=== PATIENT | male | born 1950 | race Caucasian/White ===

== ENCOUNTER 2018-10-02 12:44 | Observation (INO) | payer OTHER, SELFPAY ==
[2018-10-02] VITALS (7 sets, daily range): BP systolic 123–149; BP diastolic 61–87; PULSE 52–67; RESP 12–18; TEMP 36.1–36.9; O2SAT 94–98; BMI 25.5
--- NOTE | 2018-10-02 12:57 | DI.RAD.S_ITS ---
PROCEDURE: XR FINGER LT MIN 2V INDICATIONS: injury pain TECHNIQUE: AP hand, 2 views of the left finger(s) acquired. COMPARISON: None. FINDINGS: Bones: Index finger distal phalanx fracture with volar angulation of the dominant distal fragment. First CMC and triscaphe joint degeneration Soft tissues: No suspicious soft tissue calcifications. Severe distal index finger soft tissue swelling IMPRESSION: Index finger distal phalanx fracture. Associated soft tissue swelling. Dictated by: Sai Roblero M.D. on 10/02/2018 at 13:29 Approved by: Sai Roblero M.D. on 10/02/2018 at 13:30
[2018-10-02] MEDS: HYDROMORPHONE 1 MG INJ IV (13:21)
[2018-10-02] MEDS: TET,DIPH,PERTUSS(ACELL),VAC/PF 0.5 ML SYRINGE IM (13:23)
--- NOTE | 2018-10-02 13:24 | ED_ITS ---
HPI - Wound/Laceration <ARUN Dominique Last Filed: 10/02/18 21:05> General Chief Complaint: Wound/Laceration Stated Complaint: cut off tip of pointer finger on rt hand Time Seen by Provider: 10/02/18 13:11 Source: patient Mode of arrival: ambulatory Limitations: no limitations History of Present Illness HPI narrative: This 68-year-old male injured his hand at work , catching it between rolling belts and yair on a large HVAC unit. he thinks it took off the tip of his finger. He complains of stinging pain in the left pointer finger , denies any other pain or injury. He thinks it has been more than 5 years since his last tetanus vaccine. Related Data Home Medications Medication Instructions Recorded Confirmed No Known Home Medications 10/02/18 10/02/18 Previous Rx's Medication Instructions Recorded oxycodone 5 mg PO Q4-6H PRN #40 tab 10/02/18 Allergies Allergy/AdvReac Type Severity Reaction Status Date / Time No Known Drug Allergies Allergy Verified 10/02/18 12:56 Review of Systems <Kiara Nolasco PA-C - Last Filed: 10/02/18 21:05> Review of Systems ROS Unobtainable: All systems reviewed & are unremarkable except as noted in HPI and below PFSH <Kiara Nolasco PA-C - Last Filed: 10/02/18 21:05> Comment: former smoker, Occ ETOH Exam <ARUN Dominique Last Filed: 10/02/18 21:05> Narrative Exam Narrative: GENERAL APPEARANCE: Patient sitting comfortably, in no distress. LUNGS: Clear to auscultation bilaterally. HEART: Rate and rhythm regular without murmur, normal S1 and S2, no S3 or S4. MUSCULOSKELETAL: Able to bend left pointer finger at the PIP and MCP DERMATOLOGIC: there is a large avulsion of the left pointer finger though the pad appears intact. Moderate bleeding. NEUROVASCULAR: Left pointer finger tip sensation is grossly intact. Tip is warm and pink Initial Vital Signs Initial Vital Signs: Vital Signs Temperature 97.5 F L 10/02/18 12:57 Pulse Rate 67 10/02/18 12:57 Respiratory Rate 16 10/02/18 12:57 Blood Pressure 123/76 10/02/18 12:57 Pulse Oximetry 95 10/02/18 12:57 <Una Hernandez DO - Last Filed: 10/03/18 08:25> Initial Vital Signs Initial Vital Signs: Vital Signs Temperature 97.5 F L 10/02/18 12:57 Pulse Rate 67 10/02/18 12:57 Respiratory Rate 16 10/02/18 12:57 Blood Pressure 123/76 10/02/18 12:57 Pulse Oximetry 95 10/02/18 12:57 Course <Kiara Nolasco PA-C - Last Filed: 10/02/18 21:05> Additional Information: Dr. Cantu reservation agent for orthopedics has been here to evaluate patient who is feeling more comfortable after pain medication. he thinks that he will be able to reattached the finger and plans to take patient directly to OR in the next couple of hours. Orders Ordered: Discontinued Medications Bupivacaine HCl (Sensorcaine 0.5% (Pf)) 30 ml INJ INTRA-OP ONE Stop: 10/02/18 16:47 Last Admin: 10/02/18 17:04 Dose: 10 ml Cefazolin Sodium (Ancef Vial) 1 gm IV NOW ONE Stop: 10/02/18 13:32 Last Admin: 10/02/18 14:19 Dose: Diphtheria/Tetanus/Acell Pertussis (Adacel) 0.5 ml IM .ONCE ONE Stop: 10/02/18 13:21 Last Admin: 10/02/18 13:23 Dose: 0.5 ml Fentanyl (Sublimaze) 50 mcg IV Q5MIN PRN PRN Reason: Pain, Moderate (4-6) Hydromorphone HCl (Dilaudid) 1 mg IV NOW ONE Stop: 10/02/18 13:21 Last Admin: 10/02/18 13:21 Dose: 1 mg Cefazolin Sodium/Dextrose (Ancef) 1 gm in 50 mls @ 100 mls/hr IV NOW ONE Stop: 10/02/18 14:14 Last Infusion: 10/02/18 15:12 Dose: 0 mls/hr Admin: 10/02/18 13:47 Dose: 100 mls/hr Lactated Ringer's (Lactated Ringers) 1,000 mls @ 42 mls/hr IV CONT CLRAY Cefazolin Sodium/Dextrose (Ancef) 2 gm in 100 mls @ 200 mls/hr IV NOW ONE Stop: 10/02/18 17:16 Last Infusion: 10/02/18 16:51 Dose: 0 mls/hr Admin: 10/02/18 16:37 Dose: 200 mls/hr Lidocaine HCl (Xylocaine 1%) 10 ml INJ NOW ONE Stop: 10/02/18 16:48 Last Admin: 10/02/18 16:47 Dose: 10 ml Ondansetron HCl (Zofran) 4 mg IV NOW PRN PRN Reason: Nausea And Vomiting Vital Signs - 8 hr 10/02/18 15:30 10/02/18 15:50 10/02/18 16:04 Temperature 96.9 F L Pulse Rate 52 L 67 56 L Respiratory Rate 18 16 16 Blood Pressure 142/87 H 145/61 H Blood Pressure [Right Arm] 142/87 H Pulse Oximetry 96 97 94 10/02/18 17:05 10/02/18 17:15 10/02/18 17:25 Temperature 98.4 F 97.7 F 97.7 F Pulse Rate 56 L 56 L 56 L Respiratory Rate 12 16 16 Blood Pressure 149/64 H 149/87 H 149/80 H Blood Pressure [Right Arm] Pulse Oximetry 98 96 96 <Una Hernandez, - Last Filed: 10/03/18 08:25> Orders Ordered: Discontinued Medications Bupivacaine HCl (Sensorcaine 0.5% (Pf)) 30 ml INJ INTRA-OP ONE Stop: 10/02/18 16:47 Last Admin: 10/02/18 17:04 Dose: 10 ml Cefazolin Sodium (Ancef Vial) 1 gm IV NOW ONE Stop: 10/02/18 13:32 Last Admin: 10/02/18 14:19 Dose: Diphtheria/Tetanus/Acell Pertussis (Adacel) 0.5 ml IM .ONCE ONE Stop: 10/02/18 13:21 Last Admin: 10/02/18 13:23 Dose: 0.5 ml Fentanyl (Sublimaze) 50 mcg IV Q5MIN PRN PRN Reason: Pain, Moderate (4-6) Hydromorphone HCl (Dilaudid) 1 mg IV NOW ONE Stop: 10/02/18 13:21 Last Admin: 10/02/18 13:21 Dose: 1 mg Cefazolin Sodium/Dextrose (Ancef) 1 gm in 50 mls @ 100 mls/hr IV NOW ONE Stop: 10/02/18 14:14 Last Infusion: 10/02/18 15:12 Dose: 0 mls/hr Admin: 10/02/18 13:47 Dose: 100 mls/hr Lactated Ringer's (Lactated Ringers) 1,000 mls @ 42 mls/hr IV CONT CLARY Cefazolin Sodium/Dextrose (Ancef) 2 gm in 100 mls @ 200 mls/hr IV NOW ONE Stop: 10/02/18 17:16 Last Infusion: 10/02/18 16:51 Dose: 0 mls/hr Admin: 10/02/18 16:37 Dose: 200 mls/hr Lidocaine HCl (Xylocaine 1%) 10 ml INJ NOW ONE Stop: 10/02/18 16:48 Last Admin: 10/02/18 16:47 Dose: 10 ml Ondansetron HCl (Zofran) 4 mg IV NOW PRN PRN Reason: Nausea And Vomiting Vital Signs - 8 hr 10/02/18 15:30 10/02/18 15:50 10/02/18 16:04 Temperature 96.9 F L Pulse Rate 52 L 67 56 L Respiratory Rate 18 16 16 Blood Pressure 142/87 H 145/61 H Blood Pressure [Right Arm] 142/87 H Pulse Oximetry 96 97 94 10/02/18 17:05 10/02/18 17:15 10/02/18 17:25 Temperature 98.4 F 97.7 F 97.7 F Pulse Rate 56 L 56 L 56 L Respiratory Rate 12 16 16 Blood Pressure 149/64 H 149/87 H 149/80 H Blood Pressure [Right Arm] Pulse Oximetry 98 96 96 Discharge Plan Discharge Plan Discharge Problem: Avulsion of fingertip, Finger fracture, left Discharge Med Rec/Prescriptions Prescriptions: New oxycodone 5 mg tablet 5 mg PO Q4-6H PRN (Reason: pain) Qty: 40 RF: 0 No Action No Known Home Medications RF: 0 Follow up/Referrals: Philip Cantu MD [Physician] - 1 Week (Call clinic for appointment time on October 07 2018) Discharge Orders: Discharge (Order); Ordered 10/02/18 Ordered By: Philip Cantu Provider Discharge Instructions Diet: Regular Activity: Protect left index finger. Keep dressing in place until clinic follow -up next week. Keep hand elevated. Skin/Wound/Dressing Care Report to your healthcare provider any signs of infection, such as:: chills, fever, increased pain, unusual drainage and unusual redness Dressing: Keep dressing in place until clinic follow-up next week. Discharge Data Attending Provider: Philip Cantu Admit Date/Time: 10/02/18 13:46 Discharge Interventions Interventions: ED Discharge Assessment Last Done: 10/02/18 15:50 Discharges patient from system. Discharge Date/Time: 10/02/18 20:09 <Una Hernandez DO - Last Filed: 10/03/18 08:25> Cosign ED Attending Mracio Attestation: I was immediately available in the department for consultation. Documentation has been reviewed. I agree with assessment and plan.
[2018-10-02] MEDS: CEFAZOLIN 1 GM/50 ML FROZ.PIGGY IV (13:47)
--- NOTE | 2018-10-02 15:09 | PM.PREOP ---
Pre-operative Note Interval Note History & Physical reviewed/Exam performed by Physician: Yes Changes to H&P: No
--- NOTE | 2018-10-02 16:05 | PM.HP.1 ---
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 The finger was fractured and there was no open wound. He presented to the emergency room. At the emergency room he was able to feel the tip of his finger and the finger did appear viable. He denies any previous problems with his finger. He is right handed. He does play the [employer]. Patient History Medical History Healthy adult male (Chronic) Surgical History No pertinent past surgical history (Chronic) Family History Other Family history non-contributory Family & Social History Family History Other Family history non-contributory Meds Home Medications Medication Instructions Recorded Confirmed Type No Known Home Medications 10/02/18 10/02/18 History Allergies Allergy/AdvReac Type Severity Reaction Status Date / Time No Known Drug Allergies Allergy Verified 10/02/18 12:56 Review of Systems Review of Systems All systems reviewed & are unremarkable except as noted in HPI and below Exam Vital Signs (past 8 hours): - 10/02/18 12:57 10/02/18 15:30 10/02/18 15:50 Temperature 97.5 F L Pulse Rate 67 52 L 67 Respiratory Rate 16 18 16 Blood Pressure 123/76 142/87 H Blood Pressure [Right Arm] 142/87 H Pulse Oximetry 95 96 97 Oxygen Delivery Method Room Air Const General: cooperative, healthy appearing and comfortable Orientation: alert, awake and oriented x3 Resp Auscultation: clear to auscultation bilaterally Cardio Rate: regular rate Rhythm: regular rhythm Skin Other: The patient has a wound on the dorsal aspect of the left index finger just proximal to the nail bed. There is gross deformity of the finger. Neuro Other: The patient has intact sensation to light touch over the pulp of the index finger. The patient's strength and sensation is otherwise fully intact throughout the upper extremity. Extrem Other: There is gross deformity of the left the index finger with a 1/2 cm transverse open wound that goes across the entire dorsum of the finger. The finger tip is pink and appears adequately perfused. The remainder of the upper extremity is unremarkable. Assessment & Plan Plan: Assessment/Plan Narrative: Open fracture of the left index finger proximal phalanx. The patient has an open extra-articular fracture of the distal phalanx with significant dorsal wound. The patient does have intact sensation over the tip of the finger. The finger is pink and appears viable. X-rays show a somewhat comminuted transverse fracture just distal to the the IP joint. No obvious involvement of the joint. We discussed the nature of this condition and further treatment options. I have recommended irrigation debridement and pinning of the finger. I think the finger tip is likely to survive but does understand there is some chance that the end of the finger may and need to be revised. Consent was obtained. Operative site confirmed and marked. Time Spent With Patient Time with patient: less than 15 minutes
--- NOTE | 2018-10-02 16:15 | P.OP_ITS ---
Operative Date/Time/Diagnoses Date of procedure: 10/02/18 Time of procedure: 17:05 Pre-op diagnosis: Open displaced fracture of the left index finger distal phalanx Post-op diagnosis: same Procedure & Clinicians Procedure: Irrigation and debridement and wound closure of left index finger distal phalanx fracture Same procedure as scheduled: Yes Indications: The patient presents today for irrigation debridement and percutaneous fixation of open fracture of the left index finger distal phalanx. The nature of the procedure including the risks and benefits, alternatives, postoperative course and expected outcome were discussed and all questions answered. Consent was obtained. Operative site confirmed and marked. Surgeon: Philip Cantu Click Yes if Unassisted: Yes Anesthesia Type: Local Operative Notes Findings: The wound was clean without any obvious contamination it was thoroughly irrigated. The dorsal wound was then closed and the avulsed nail plate sutured in place. The finger was then examined under fluoroscopy. The fracture comminuted but reduced well was exceedingly stable even with flexion extension of the finger. I did not feel there would be any benefit to percutaneous pinning especially given the comminuted nature of the fracture. The wound blood well in the finger remained pink throughout the procedure with no evidence of compromise blood flow. Closure Type: primary Specimen(s): none sent Estimated Blood Loss (mL): 5 Procedure in detail: The patient was taken the operative suite and given a digital nerve block with 10 cc of 1% lidocaine. The finger was then prepped draped usual sterile fashion. There is a dorsal wound just distal to the DI P joint. The nail plate was avulsed approximately with about 4 mm of the nail plate on the proximal portion of the wound. The wound was thoroughly irrigated with 1 L of normal saline. The fracture was then reduced by closing the skin and suturing the nail plate to the proximal nail fold. The fracture was then evaluated under AP and lateral fluoroscopy. The fracture reduced nearly anatomically and was very stable to manipulation and flexion extension as tested under fluoroscopy. I did not think there would be any benefit to percutaneous pinning which would need across the IP joint. The wound was dressed with Xeroform and sterile gauze. A light finger dressing and aluminum splint was placed. Care was taken not to put any pressure on the finger as to affect the blood supply. Another digital block with 10 cc of 0.5% plain Marcaine was then given for postoperative pain control. The patient tolerated procedure well and was returned recovery room in good condition. Complications: none Condition: stable Disposition: same day surgery Plan for aftercare: The patient will keep the dressing in place over the next 5- 7 days. Follow up in clinic next week.
--- NOTE | 2018-10-02 16:24 | SUR.OPER ---
Supine on padded OR bed, head on pillow, arms secured on padded arm boards at <90 degrees abduction, legs uncrossed, safety belt at thigh, tape over blanket over lower legs.
[2018-10-02] MEDS: CEFAZOLIN 2 GM/100 ML FROZ.PIGGY IV (16:37)
[2018-10-02] MEDS: LIDOCAINE 1% 20 ML INJ 10 ML INJ (16:47)
[2018-10-02] MEDS: BUPIVACAINE 0.5% (PF) VIAL 30 ML INJ (17:04)
--- NOTE | 2018-10-02 17:50 | SUR.PHASEII ---
pt iv was not entered in MAR see i & O for total infused
== END 2018-10-02 20:09 ==
LOC: AC 17:16 → ED 20:03
PROVIDERS: Admitting Provider Orthopaedic Surgery; Visit Provider Orthopaedic Surgery
PROC: (CPT 26765; principal; 2018-10-02 17:15)
DX: S62.631B Displaced fracture of distal phalanx of left index finger, initial encounter for open fracture (principal); W31.82XA Contact with other commercial machinery, initial encounter; Y92.69 Other specified industrial and construction area as the place of occurrence of the external cause
CPT/HCPCS: 26765; 36591; 73140; G0378; 90715; J0690; J1170; J2250